=== PATIENT | female | born 1965 | race American Indian/Alaskan Native ===

== ENCOUNTER 2020-09-05 12:20 | Emergency (ER) | payer SELFPAY ==
--- NOTE | 2020-09-05 12:58 | Event Note ---
ED Screening Note ED Screening Note: here with dizziness and LLE, thigh pain reports near sycope 4 days ago but has persistent dizziness endorses sob; pain in neck no cp no chills; no fever no cough States she thinks she has HIV- she overheard staff talking about her at [facility] in [place]--- 03/06 Did not go get follow up test- has lyla [facility] PM HTN sciatica fx l foot SLE- was told she had it but then tests neg migraine PSH tubal ligation mom and dad a/w quit smoking 5 w ago no drugs; weed 12 y ago wine weekend rx amlodipine - hctz? she thinks is in med ALLERGY TO LISINOPRIL MOTRIN- tongue swelling and rash This initial assessment/diagnostic orders/clinical plan/treatment(s) is/are subject to change based on patients health status, clinical progression and re- assessment by fellow clinical providers in the ED. Further treatment and workup at subsequent clinical providers discretion. Patient/guardian urged not to elope from the ED as their condition may be serious if not clinically assessed and managed. Initial orders include: ekg labs
--- NOTE | 2020-09-05 14:29 | Emergency Department Report ---
ED General Adult HPI - General Chief complaint: Dizziness Stated complaint: DIZZINESS; LEG PAIN; HEADACHE Time Seen by Provider: 09/05/20 12:51 Source: patient Mode of arrival: Ambulatory Limitations: No Limitations - History of Present Illness Initial comments: Patient is a 55-year-old female who presents to the emergency department for evaluation of multiple complaints. Patient states she has been intermittently dizzy (described as lightheadedness) for the past 4 days, which has steadily been improving. Patient notes similar episode 1 year ago during which she was evaluated at a different facility and had negative work-up, patient believes the symptoms to be related to her blood pressure control, noting she is unsure if her blood pressure is too high or too low. Patient also complaining of left thigh pain radiating into her left calf beginning last night which is severe and crampy, consistent with previous sciatica although noting she has not had sciatic pain in quite some time. Patient denies chest pain or dyspnea, low back pain, denies fever, denies dysuria. Patient denies headache, denies loss of sensation, denies extremity weakness. Patient denies unsteady gait. - Related Data Previous Rx's Medication Instructions Recorded Last Taken Type diazePAM TAB [Valium] 5 mg PO QHS PRN #10 tab 09/05/20 Unknown Rx Allergies Allergy/AdvReac Type Severity Reaction Status Date / Time ibuprofen Allergy Anaphylaxis Verified 09/05/20 12:32 ED Review of Systems ROS: Stated complaint: DIZZINESS; LEG PAIN; HEADACHE Other details as noted in HPI Comment: All other systems reviewed and negative ED Past Medical Hx - Past Medical History Hx Hypertension: Yes Additional medical history: patient said she was told that she has lupus, but then received some conflicting information. - Surgical History Past Surgical History?: No - Medications Home Medications: Home Medications Medication Instructions Recorded Confirmed Last Taken Type diazePAM TAB [Valium] 5 mg PO QHS PRN #10 tab 09/05/20 Unknown Rx ED Physical Exam - General Limitations: No Limitations General appearance: alert, in no apparent distress - Head Head exam: Present: atraumatic, normocephalic - Eye Eye exam: Present: normal appearance - ENT ENT exam: Present: mucous membranes moist - Neck Neck exam: Present: normal inspection - Respiratory Respiratory exam: Present: normal lung sounds bilaterally. Absent: respiratory distress - Cardiovascular Cardiovascular Exam: Present: regular rate, normal rhythm - GI/Abdominal GI/Abdominal exam: Present: soft, normal bowel sounds - Extremities Exam Extremities exam: Present: normal inspection - Back Exam Back exam: Present: normal inspection - Neurological Exam Neurological exam: Present: alert, oriented X3 - Psychiatric Psychiatric exam: Present: normal affect, normal mood - Skin Skin exam: Present: warm, dry, intact, normal color. Absent: rash ED Course Vital Signs 09/05/20 12:33 Temperature 98.0 F Pulse Rate 68 Respiratory 18 Rate Blood Pressure 150/98 [Right] O2 Sat by Pulse 100 Oximetry - Reevaluation(s) Reevaluation #1: 09/05/20 15:57 Patient treated with Tylenol p.o. with resolution of discomfort. On reevaluation, patient in no acute distress, denies dizziness. Neuro exam remains nonfocal. Patient remains normotensive. Patient advised to call previous evaluating facility as she is expresses concern she may have HIV, is able to contact medical records at other facility and have results forwarded to her email which seemingly improved her symptoms. Patient advised to follow-up with primary care doctor for reevaluation of both dizziness and leg pain complaint, noting she may require physical therapy and/or further imaging of either her head or low back ED Medical Decision Making - Lab Data Result diagrams: 09/05/20 14:34 09/05/20 14:34 Lab Results 09/05/20 09/05/20 Range/Units 14:34 14:34 WBC 5.7 (4.5-11.0) K/mm3 RBC 5.20 H (3.65-5.03) M/mm3 Hgb 12.5 (10.1-14.3) gm/dl Hct 39.9 (30.3-42.9) % MCV 77 L (79-97) fl MCH 24 L (28-32) pg MCHC 31 (30-34) % RDW 14.5 (13.2-15.2) % Plt Count 209 (140-440) K/mm3 Sodium 142 (137-145) mmol/L Potassium 4.6 (3.6-5.0) mmol/L Chloride 106.0 (98-107) mmol/L Carbon Dioxide 29 (22-30) mmol/L Anion Gap 12 mmol/L BUN 10 (7-17) mg/dL Creatinine 0.9 (0.6-1.2) mg/dL Estimated GFR > 60 ml/min BUN/Creatinine Ratio 11 % Glucose 86 (65-100) mg/dL Calcium 9.2 (8.4-10.2) mg/dL Troponin T < 0.010 (0.00-0.029) ng/mL Vital Signs 09/05/20 12:33 Temperature 98.0 F Pulse Rate 68 Respiratory 18 Rate Blood Pressure 150/98 [Right] O2 Sat by Pulse 100 Oximetry - EKG Data -: EKG Interpreted by Me (Sinus rhythm at 60, no ST-T changes, normal QRS) Critical care attestation.: If time is entered above; I have spent that time in minutes in the direct care of this critically ill patient, excluding procedure time. ED Disposition Clinical Impression: Leg pain, left, Dizziness Disposition: - TO HOME OR SELFCARE Is pt being admited?: No Condition: Stable Instructions: Dizziness, [id number], Sciatica Prescriptions: diazePAM TAB [Valium] 5 mg PO QHS PRN #10 tab PRN Reason: Pain, Moderate (4-6) Referrals: PRIMARY CAREMD [Primary Care Provider] - 3-5 Days JOHN RUDD II, MD [Staff Physician] - 3-5 Days
[2020-09-05 14:47] LABS: Hematocrit 39.9 % (30.3-42.9); Hemoglobin 12.5 gm/dl (10.1-14.3); Mean Corpuscular HGB Conc 31 % (30-34); Mean Corpuscular Volume 77 fl (79-97); Platelet Count 209 K/mm3 (140-440); Red Cell Distribution Width 14.5 % (13.2-15.2)
[2020-09-05 15:29] LABS: BUN/Creatinine Ratio 11; Blood Urea Nitrogen 10 mg/dL (7-17); Calcium 9.2 mg/dL (8.4-10.2); Hemolysis Index 1
--- NOTE | 2020-09-05 15:33 | Vascular Lab Report ---
DUPLEX DOPPLER LOWER EXTREMITY VEINS, LEFT INDICATION / CLINICAL INFORMATION: leg pain. TECHNIQUE: Duplex doppler imaging was performed through the veins of the left lower extremity using venous compr ession and other maneuvers. COMPARISON: None available. FINDINGS: LEFT COMMON FEMORAL VEIN: Negative. LEFT FEMORAL VEIN: Negative. LEFT POPLITEAL VEIN: Negative. LEFT CALF VEINS: Negative. ADDITIONAL FINDINGS: None. IMPRESSION: No sonographic evidence for DVT in the left lower extremity. Signer Name: Artem Robledo MD Signed: 09/05/2020 3:29 PM Workstation Name: [id number]
[2020-09-05] MEDS ORDERED: ACETAMINOPHEN 325 MG TAB PO ONE (15:54)
[2020-09-05 16:15] VITALS: BP 124/70
[2020-09-05 18:19] LABS: Bilirubin,Urine NEG (Negative); Blood,Urine NEG (Negative); Color,Urine Yellow (Yellow); Mucus,Urine FEW /HPF; Protein,Urine <15 mg/dL mg/dL (Negative); WBC,Urine < 1.0 /HPF (0.0-6.0)
[2020-09-05 18:30] LABS: HCG Qualitative,Urine Negative (Negative)
== END 2020-09-05 16:48 | disposition home or self-care (01) ==
LOC: ED 12:20
DX: M79.605 Pain in left leg (principal); R42 Dizziness and giddiness; I10 Essential (primary) hypertension; Z79.899 Other long term (current) drug therapy; Z88.8 Allergy status to other drugs, medicaments and biological substances
CPT/HCPCS: 36415; 80048; 81001; 81025; 84484; 85027; 93005